=== PATIENT | female | born 1960 | race Asian ===

== ENCOUNTER 2016-09-04 08:49 | Emergency (ER) | payer BC ==
[~2016-09-04 08:49] MED LIST: ASCO1CAP3 PO; ASPCH81 PO; FISHOIL; FLAX SEED OIL PO; FLAX12003 PO; LISI-787 PO
[2016-09-04 08:56] VITALS: TEMP 36.5
[2016-09-04] MEDS ORDERED: LORAZEPAM 1 MG TAB ONE (09:01)
--- NOTE | 2016-09-04 09:10 | EMERGENCY ROOM VISIT NOTE ---
History Report prepared by Scribe: Sebastián Mccann Under the Supervision of: Dr. Nigel Rose D.O. First contact with patient: 09:00 Chief Complaint: OTHER COMPLAINT Stated Complaint: AMS History of Present Illness The patient is a 56 year old female who presents to the Emergency Room with complaints of constant emotional distress beginning just prior to arrival. She was with her in the hospital when he from pancreatic cancer. She is reported to have begun hyperventilating upon his passing. Source of History: patient Onset: Just prior to arrival Quality: other (emotional distress) Timing: constant Review of Systems See HPI for pertinent positives & negatives. A total of 10 systems reviewed and were otherwise negative. Past Medical & Surgical Medical Problems: (1) No Known Active Medical Problems Family History No pertinent family history stated. Social History Smoking Status: Never Smoker Marital Status: Current/Historical Medications Scheduled Ascorbic Acid (Vitamin C), 500 MG PO QAM Aspirin (Aspirin Tab-Chewable *), 81 MG PO DAILY Flaxseed (Linseed) (Flaxseed Oil), 1 CAP PO QAM Lisinopril & Hydrochlorothiazi (Zestoretic 20-12.5 mg), 1 TAB PO QAM [Fish Oil], 1 TAB DAILY [Flax Seed Oil], 1 PO DAILY Allergies Coded Allergies: No Known Allergies (Unverified , 06/10/14) Physical Exam Vital Signs Date Time Temp Pulse Resp B/P (MAP) Pulse Ox O2 Delivery O2 Flow Rate FiO2 09/04/16 08:56 36.5 113 24 138/108 100 Room Air Physical Exam PSYCH: Patient is crying and is distressed about the loss of her . CONSTITUTIONAL/VITAL SIGNS: Reviewed / noted above. GENERAL: Non-toxic in appearance. INTEGUMENTARY: Warm, dry, and [place]. HEAD: Normocephalic. EYES: without scleral icterus or trauma. ENT/OROPHARYNX: clear and moist. LYMPHADENOPATHY/NECK: Is supple without lymphadenopathy or meningismus. RESPIRATORY: Lungs clear and equal. CARDIOVASCULAR: Regular rate and rhythm. GI/ABDOMEN: Soft and nontender. No organomegaly or pulsatile mass. No rebound or guarding. Normal bowel sounds. EXTREMITIES: Warm and well perfused. BACK: No CVA tenderness. NEUROLOGICAL: Intact without focal deficits. PSYCHIATRIC: normal affect. MUSCULOSKELETAL: Normally developed with good muscle tone. Medical Decision & Procedures ED Course 0900: Previous medical records were reviewed. The patient was evaluated in room A3. A complete history and physical examination was performed. 09: Ordered Ativan Tab 1 mg PO. 909: On reevaluation, the patient is resting comfortably. I discussed the results and findings with the patient. She verbalized agreement of the treatment plan. She was discharged home. Medical Decision differential includes toxic ingestions, self-mutilation, suicidal ideation, suicide attempt, depression. This is a 56-year-old female who presents to the ED with a chief complaint of emotional distress after the loss of her . The patient's just upstairs. He had terminal pancreatic cancer. The patient was having emotional distress regarding this and was brought here for evaluation. The patient states that she would like to go back up to be with her . She states that she is otherwise feeling fine. She is tearful. The patient was given Ativan sublingual. She was discharged from the emergency department to continue her grieving. Impression Primary Impression: Grieving Scribe Attestation The scribe's documentation has been prepared under my direction and personally reviewed by me in its entirety. I confirm that the note above accurately reflects all work, treatment, procedures, and medical decision making performed by me. Departure Information Dispostion Home / Self-Care Referrals Will Mcgovern D.O. (PCP) Patient Instructions [facility]
[2016-09-04 09:39] VITALS: BP 144/88; PULSE 87; O2SAT 100
== END 2016-09-04 09:43 | disposition home or self-care (01) ==
LOC: EDBD 08:49 → C.EDA 08:57
DX: F43.21 Adjustment disorder with depressed mood (principal); Z79.82 Long term (current) use of aspirin; Z79.899 Other long term (current) drug therapy